=== PATIENT | male | born 1975 | race Two or more races ===

== ENCOUNTER → 2023-05-19 08:24 | Outpatient (CLI) | payer OTHER ==
[2023-05-19 09:27] LABS: HEMATOCRIT 45.5 % (39.0-48.0); HEMOGLOBIN 15.3 g/dL (13-16.00); MEAN CELL VOLUME 87.7 fL (80.0-100.00); MEAN CORPUSCULAR HEMOGLOBIN 29.6 pg (27.00-32.0); MEAN CORPUSCULAR HGB CONC 33.7 g/dl (32.0-36.0); PLATELET COUNT 297 K/uL (150-450); RED BLOOD COUNT 5.19 M/uL (4.00-6.00); RED CELL DISTRIBUTION WIDTH 13.8 % (11.5-14.5)
[2023-05-19 09:29] LABS: URINE APPEARANCE Clear; URINE BILIRRUBIN Negative (NEGATIVE); URINE BLOOD Negative; URINE COLOR Yellow; URINE GLUCOSE Negative (NEGATIVE); URINE LEUKOCYTE Negative; URINE NITRATE Negative; URINE PROTEIN Negative (NEGATIVE)
[2023-05-19 09:33] LABS: URINE RBC 7.9 uL (0.0-20.8)
[2023-05-19 09:43] LABS: URINE BACTERIA 2.5 uL (0.0-1933); URINE WBC 1.7 uL (0.0-23.2)
[2023-05-19 10:08] LABS: INR 1.03; PARTIAL THROMBOPLASTIN TIME 30.5 SECONDS (22.0-34.0); PROTHROMBIN TIME 10.8 SECONDS (9.0-11.5)
[2023-05-19 10:14] LABS: ALBUMIN 4.2 gm/dL (3.4-5.0); BILIRUBIN TOTAL 0.73 mg/dL (0.3-1.2); CALCIUM 9.6 mg/dL (8.5-10.1); CREATININE SERUM 0.97 mg/dL (0.70-1.30); GFR 82.61; GLOBULINA 3.2 G/DL (2.4-3.5); POTASSIUM 3.91 mEq/L (3.5-5.1); TOTAL PROTEIN 7.4 gm/dL (6.4-8.2)
== END | disposition home or self-care (01) ==
LOC: LAB 08:24
PROVIDERS: ATTEND Colon & Rectal Surgery
DX: K64.2 Third degree hemorrhoids (principal); K64.4 Residual hemorrhoidal skin tags; I10 Essential (primary) hypertension

== ENCOUNTER 2023-05-26 05:50 | Day surgery (SDC) | payer OTHER ==
[~2023-05-26 05:50] MED LIST: AMLO PO; COZAAR100 MG PO; FOLIC ACI PO; INDAPAMIDE1.25 MG PO; SIMVAST PO
== END 2023-05-26 17:15 | disposition home or self-care (01) ==
LOC: CIR.AMB 05:50
PROVIDERS: ATTEND Colon & Rectal Surgery
DX: K64.2 Third degree hemorrhoids (principal); K64.4 Residual hemorrhoidal skin tags; K64.8 Other hemorrhoids; Z91.041 Radiographic dye allergy status; I10 Essential (primary) hypertension; K76.0 Fatty (change of) liver, not elsewhere classified